=== PATIENT | female | born 1980 | race African-American/Black ===

== ENCOUNTER 2020-08-17 07:53 | Emergency (ER) | payer OTHER ==
[~2020-08-17] VITALS: Ht 172.7 cm; Wt 83.0 kg
[2020-08-17 09:06] VITALS: BP 127/88
== END 2020-08-17 09:29 | disposition home or self-care (01) ==
LOC: ER 07:53
DX: M70.62 Trochanteric bursitis, left hip (principal); I10 Essential (primary) hypertension; F12.90 Cannabis use, unspecified, uncomplicated; Z88.8 Allergy status to other drugs, medicaments and biological substances; Y93.89 Activity, other specified